=== PATIENT | female | born 1990 | race Caucasian/White ===

== ENCOUNTER 2024-10-30 12:52 | Emergency (ER) | payer OTHER ==
[~2024-10-30] VITALS: Ht 157.5 cm; Wt 83.9 kg
[2024-10-30] MEDS ORDERED: ONDANSETRON HCL/PF 4 MG/2 ML VIAL ONE (13:43)
[2024-10-30] MEDS ORDERED: MORPHINE SULFATE INJ 2 MG/ML DISP.SYRIN ONE (13:44)
[2024-10-30] MEDS: IV NS 0.9% 1,000 ML BAG IV ONE (13:48)
[2024-10-30] MEDS: ONDANSETRON HCL/PF 4 MG/2 ML VIAL IVP ONE (13:49)
[2024-10-30] MEDS: MORPHINE SULFATE INJ 2 MG/ML DISP.SYRIN IV ONE (13:49)
[2024-10-30] MEDS ORDERED: IV NS 0.9% 250 ML IV ONE (13:52)
[2024-10-30] MEDS ORDERED: IOHEXOL-300 100 ML VIAL IV ONE (13:52)
[2024-10-30 14:01] LABS: PREGNANCY TEST URINE QUAL NEGATIVE (NEGATIVE)
[2024-10-30 14:25] LABS: ASPARTATE AMINOTRANSFERASE 13.0 U/L (15-37); TOTAL PROTEIN, SERUM 7.1 g/dL (6.4-8.2)
[2024-10-30 17:56] LABS: CALCIUM, SERUM 8.8 mg/dL (8.5-10.1); CREATININE 0.7 mg/dL (0.6-1.3); SODIUM SERUM 138.0 mmol/L (136-145); UREA NITROGEN, BLOOD 11.0 mg/dL (7-18)
[2024-10-30] MEDS ORDERED: KETOROLAC TROMETHAMINE 15 MG/ML VIAL ONE (18:30)
[2024-10-30] MEDS: KETOROLAC TROMETHAMINE 15 MG/ML VIAL IV ONE (18:34)
[2024-10-30 19:33] LABS: PLATELET COUNT (AUTO) 224 K/uL (150-450); RED BLOOD CELL COUNT(AUTO) 4.44 MIL/uL (4.0-5.2); RED CELL DISTRIBUTION WIDTH 15.1 % (11.5-15.0); WHITE BLOOD COUNT (AUTO) 5.4 K/uL (4.3-11.0)
[2024-10-30 20:21] LABS: APPEARANCE,URINE CLEAR (CLEAR); BLOOD, URINE NEGATIVE Ery/uL (NEGATIVE); LEUKOCYTE ESTERASE ,URINE NEGATIVE (NEGATIVE); NITRITE, URINE NEGATIVE (NEGATIVE); UGLUCOSE NEGATIVE (NEGATIVE)
[2024-10-30 20:25] VITALS: BP 113/71; TEMP 98.5; O2SAT 100
[2024-10-30 20:41] LABS: ADD URINE CULTURE NO
== END 2024-10-30 20:20 | disposition home or self-care (01) ==
LOC: ER 13:09
DX: R10.31 Right lower quadrant pain (principal); R00.2 Palpitations; R11.0 Nausea; F41.9 Anxiety disorder, unspecified; N83.201 Unspecified ovarian cyst, right side; Z60.2 Problems related to living alone
CPT/HCPCS: 99285; 74177; 96374; 76856; 96361; 96375; 85025; 80048; 83690; 80076; 84703; 81001; 36415; J1885; J2405; J7050; Q9967; J2270